=== PATIENT | female | born 1980 | race Caucasian/White ===

== ENCOUNTER 2016-04-10 10:27 | Emergency (ER) | payer OTHER ==
--- NOTE | 2016-04-10 11:20 | ERRECORD ---
[facility] EMERGENCY RECORD HPI VAGINAL DISCHARGE (10:57 ALIM) CHIEF COMPLAINT: Patient presents for evaluation of vaginal discharge. HISTORIAN: History provided by patient, 36 y/o female with reported history of endometriosis, presenting with one week of clear vaginal discharge. She went to her Cocoa Butter Filter Operator last week for pap smear. Spoke with Cocoa Butter Filter Operator while pt was in the ER, with diagnosis of bacterial vaginitis. Cocoa Butter Filter Operator called in a prescription. Pt does not want any further treatment or evaluation. No fever, headache, CP, n/v, constipation, diarrhea, or dysuria. Home and Cocoa Butter Filter Operator tests negative by report. DC with Cocoa Butter Filter Operator follow-up. LOCATION: Symptoms are generalized. QUALITY: Discharge described as, moderate amount, no pruritis, no foul odor, clear. SEVERITY: Maximum severity of symptoms mild, Currently symptoms are mild. TIME COURSE: Gradual onset of symptoms, 1, weeks ago. ASSOCIATED WITH: No associated symptoms, No associated chills, No associated constipation, No associated diarrhea, No associated fever, No associated flank pain, No associated hematuria, No associated loss of appetite, No associated nausea. EXACERBATED BY: Patient's condition exacerbated by nothing. RELIEVED BY: Patient's condition relieved by nothing. ROS CONSTITUTIONAL: Negative constitutional review of systems, Historian denies chills, denies fever. (10:59 ALIM) EYES: Negative eye review of systems, Historian denies eye pain, denies eye redness. (10:59 ALIM) ENT: Negative ears, nose, throat review of systems, Historian denies rhinorrhea, denies sore throat. (10:59 ALIM) CARDIOVASCULAR: Negative cardiovascular review of systems, Historian denies chest pain, no radiation, Historian denies syncope. (10:59 ALIM) RESPIRATORY: Negative respiratory review of systems, Historian denies cough, denies shortness of breath. (10:59 ALIM) GI: Historian denies abdominal pain, denies constipation, denies diarrhea, denies nausea, denies vomiting. Mild suprapubic cramping. (10:59 ALIM) GENITOURINARY FEMALE: Mild cramping. (11:01 ALIM) MUSCULOSKELETAL: Negative musculoskeletal review of systems, Historian denies back pain, denies injury, denies neck pain. (10:59 ALIM) SKIN: Negative skin review of systems, Historian denies rash, denies skin changes. (10:59 ALIM) NEUROLOGIC: Negative neurologic review of systems, Historian denies dizziness, denies focal weakness, denies headache. (10:59 ALIM) PSYCHIATRIC: Negative psychiatric review of systems, Historian denies alcohol abuse, denies anxiety, denies depression. (10:59 ALIM) NOTES: All systems reviewed, negative except as described above. &a-1R&a+25V*p+0X*m4910I*c202B*c15G*c2P*p-0X&a-25V&a+1R Name: Rajni Easley : 1980 F36 MedRec: [id number] AcctNum: [id number] Prepared: SunApr 10, 2016 11:21 by Interface Page 1 of 3 pMD [facility] EMERGENCY RECORD (10:59 ALIM) PAST MEDICAL HISTORY MEDICAL HISTORY: Notes: seizures, Flu vaccine not up to date, Tetanus not up to date, Past medical history includes gynecologic history, endometriosis. (11:18 ALIM) FEMALE SURGICAL HISTORY: endrometrosis laposcopic surgeries, Surgical history of appendectomy. (11:18 ALIM) PSYCHIATRIC HISTORY: Psychiatric history includes, Notes: stress induced psychosis. (11:18 ALIM) SOCIAL HISTORY: Patient drinks socially, Patient denies drug use, Patient currently uses tobacco, smokes cigarettes, Patient smokes 1 pack per day. (11:18 ALIM) NOTES: Nursing records reviewed, Agree with nursing records, Medication list reviewed, I have reviewed and agree with nursing PMH, PSH, social history, and FH. (10:59 ALIM) KNOWN ALLERGIES Cortisone (hydrocortisone): - "all topical cortisones make rash worse" Topical cortisone (Unconfirmed) CURRENT MEDICATIONS No recorded medications VITAL SIGNS (10:56 GHIA) VITAL SIGNS: BP: 125/92, Pulse: 98, Resp: 17, Temp: 98.2 (Oral), Pain: 6, O2 sat: 98 on Room Air, Time: 04/10/2016 10:56. PHYSICAL EXAM CONSTITUTIONAL: Vital Signs Reviewed, Patient afebrile, Pulse normal, Blood pressure normal, Respiratory rate normal, Patient appears non toxic, Patient appears pain free, Patient alert and oriented to person, place and time, Nursing notes reviewed. (10:59 ALIM) HEAD: Head exam normal, Head exam included findings of head atraumatic, normocephalic. (10:59 ALIM) EYES: Eye exam normal, Eye exam included findings of eyelids normal to inspection, Pupils equally round and reactive to light, Extraocular muscles intact. (10:59 ALIM) ENT: ENT exam normal, Ear exam normal, Nose exam normal, Pharynx exam normal. (10:59 ALIM) NECK: Neck exam normal, Neck exam included findings of normal range of motion, Trachea midline. (10:59 ALIM) RESPIRATORY CHEST: Respiratory and chest exam normal, Respiratory exam included findings of no respiratory distress, Breath sounds clear, No wheezing. (10:59 ALIM) CARDIOVASCULAR: Cardiovascular assessment normal, Cardiovascular exam included findings of heart rate regular rate and rhythm, Heart sounds normal. (10:59 ALIM) &a-1R&a+25V*p+0X*s3830T*c202B*c15G*c2P*p-0X&a-25V&a+1R Name: Rajni Easley : 1980 F36 MedRec: [id number] AcctNum: [id number] Prepared: SunApr 10, 2016 11:21 by Interface Page 2 of 3 pMD [facility] EMERGENCY RECORD ABDOMEN FEMALE: Abdominal exam normal, Bowel sounds normal. (11:00 ALIM) GENITOURINARY FEMALE: Deferred. Done by Cocoa Butter Filter Operator last week. (10:59 ALIM) BACK: Back exam normal, Back exam included findings of normal inspection, range of motion normal. (10:59 ALIM) UPPER EXTREMITY: Upper extremity exam normal, Upper extremity exam included findings of inspection normal, Range of motion normal. (10:59 ALIM) LOWER EXTREMITY: Lower extremity exam normal, Lower extremity exam included findings of inspection normal, Range of motion normal. (10:59 ALIM) NEURO: Neuro exam normal, [place] coma scale 15, Neuro exam findings include patient oriented to person, place and time, Speech normal, Gait normal. (10:59 ALIM) SKIN: Skin exam normal, Skin exam included findings of skin warm, dry, and normal in color. (10:59 ALIM) PSYCHIATRIC: Psychiatric exam normal, Psychiatric exam included findings of patient oriented to person place and time, Normal affect, Judgment normal. (10:59 EUGENE) DOCTOR NOTES (11:01 EUGENE) RE-EVALUATION: Discharge without lab work. All orders cancelled. Pt spoke with Cocoa Butter Filter Operator while pt was in the ER, received pap results from last week, dx bacterial vaginitis. Script called in by Cocoa Butter Filter Operator. No need for labs or pelvic exam here. DC with Cocoa Butter Filter Operator follow-up. PROBLEM LIST No recorded problems DIAGNOSIS (10:55 EUGENE) FINAL: PRIMARY: Bacterial vaginitis, ADDITIONAL: Vaginal discharge. PRESCRIPTION No recorded prescriptions DISPOSITION PATIENT: Disposition Type: Discharge, Disposition: *Discharge Home. (10:55 EUGENE) Patient left the department. (11:09 JOJO) Dugan: EUGENE=MD Bebo, Dagoberto URIBE=JOSEPH Moses, Coni &a-1R&a+25V*p+0X*m8186W*c202B*c15G*c2P*p-0X&a-25V&a+1R Name: Rajni Easley : 1980 F36 MedRec: [id number] AcctNum: [id number] Prepared: SunApr 10, 2016 11:21 by Interface Page 3 of 3 pMD MTDD
--- NOTE | 2016-04-10 11:24 | PICIS ---
[facility] EMERGENCY RECORD TRIAGE (SunApr 10, 2016 10:45 GHIA) PATIENT: NAME: Rajni Easley, AGE: 36, GENDER: female, : [facility] 1980, TIME OF GREET: SunApr 10, 2016 10:28, PREFERRED LANGUAGE: Greenlandic, RACE: WHITE, ETHNICITY: Not or , ECODE BILLING MAP: [facility] ER, SSN: [id number], Zip Code: [address], KG WEIGHT: 68.04, PHONE: , , , PERSON ID: [id number]. TRIAGE NOTES: Pt with clear watery vaginal discharge...pt on cell phone talking with LINDA Yeboah COMPLAINT: CLEAR WATERY VAGINAL DISCHARGE/ABD DISCOMFORT. ADMISSION: URGENCY: 3 Urgent, ADMISSION SOURCE: Home, TRANSPORT: CAR, BED: TRIAGE. PROVIDERS: TRIAGE NURSE: Coni Moses RN. PREVIOUS VISIT ALLERGIES: No Known Drug Allergies. KNOWN ALLERGIES Cortisone (hydrocortisone): - "all topical cortisones make rash worse" Topical cortisone (Unconfirmed) CURRENT MEDICATIONS No recorded medications VITAL SIGNS (10:56 GHIA) VITAL SIGNS: BP: 125/92, Pulse: 98, Resp: 17, Temp: 98.2 (Oral), Pain: 6, O2 sat: 98 on Room Air, Time: 04/10/2016 10:56. NURSING ASSESSMENT: HEAD-TO-TOE (10:50 GHIA) CONSTITUTIONAL: Patient arrives ambulatory, Gait steady, History obtained from patient, Patient appears comfortable, Patient cooperative, Patient alert, Oriented to person, place and time, Skin warm, Skin dry, Skin normal in color, Mucous membranes pink, Mucous membranes moist, Patient is well-groomed, Patient complains of VAginal discharge, Pt in room in bed . Assess. Plan of care of pt in ER discussed. PAIN: Patient rates pain as 0 out of 10, pt denies pain. SKIN: Skin assessment findings include skin warm, Skin dry, Skin normal in color, Notes: intact. RESPIRATORY/CHEST: Respiratory assessment findings include respiratory effort easy. CARDIOVASCULAR: Cardiovascular assessment findings include heart rate normal. ABDOMEN: Abdomen assessment findings include abdomen symmetrical, no associated nausea, no associated vomiting, no associated diarrhea, no associated constipation. GENITOURINARY FEMALE: no associated urinary complaints, Associated with vaginal discharge, small amount, of thin, clear discharge, "watery clear vag &a-1R&a+25V*p+0X*q5438D*c202B*c15G*c2P*p-0X&a-25V&a+1R Name: Rajni Easley : 1980 F36 MedRec: [id number] AcctNum: [id number] Prepared: SunApr 10, 2016 11:21 by Interface Page 1 of 6 pMD [facility] EMERGENCY RECORD discharge". NOTES: Emotional support needed and given. SAFETY: Side rails up, Cart/Stretcher in lowest position, Call light within reach, Hospital ID band on. NURSING PROCEDURE: DISCHARGE NOTE (11:01 IA) DISCHARGE: Patient discharged to home, ambulating without assistance, patient walking, unaccompanied, Summary of Care printed/ provided, Transition record given to patient, Discharge instructions given to patient, Simple or moderate discharge teaching performed, Above person(s) verbalized understanding of discharge instructions and follow-up care. BELONGINGS: Belongings remain with patient, Valuables remain with patient. SAFETY: Notes: pt instructed to go get RX called in to pt pharm of choice by pts OBGYN today and start med as instructed by pts OBGYN . NURSING PROCEDURE: NURSE NOTES (10:48 IA) NURSES NOTES: Notes: Pt states her OBGYN (per cell phone conversation going on at this time) said pts current condition (watery vaginal discharge) is from Vaginitis dx from PAP results obtained yesterday and OBGYN will call in antibx for pt. Er Dr at bedside and agrees with pt choice to leave Er and get antibx from pharm as prescribed. Pt states her preg test is negative. ORDER DETAILS Order Name: CATH STRAIGHT ED, Status: Active, Time: 10:48 04/10/2016, User: EUGENE, - Ordered for: MD Lagunas Arthur, - Entered by: MD Lagunas Arthur - SunApr 10, 2016 10:48, - Quantity: 1, Order Name: CBC with Differential, Status: Active, Time: 10:48 04/10/2016, User: EUGENE, - Ordered for: MD Lagunas Arthur, - Entered by: MD Lagunas Arthur - SunApr 10, 2016 10:48, - Quantity: 1, Order Name: Comprehensive Metabolic Panel, Status: Active, Time: 10:48 04/10/2016, User: EUGENE, - Ordered for: MD Lagunas Arthur, - Entered by: MD Lagunas Arthur - SunApr 10, 2016 10:48, - Quantity: 1, Order Name: Lipase, Status: Active, Time: 10:48 04/10/2016, User: EUGENE, - Ordered for: MD Lagunas Arthur, - Entered by: MD Lagunas Arthur - SunApr 10, 2016 10:48, - Quantity: 1, Order Name: Test, Urine (BHCG), Status: Active, Time: 10:48 04/10/2016, User: EUGENE, - Ordered for: MD Lagunas Arthur, &a-1R&a+25V*p+0X*j3272K*c202B*c15G*c2P*p-0X&a-25V&a+1R Name: Rajni Easley : 1980 F36 MedRec: [id number] AcctNum: [id number] Prepared: SunApr 10, 2016 11:21 by Interface Page 2 of 6 pMD [facility] EMERGENCY RECORD - Entered by: MD Lagunas Arthur - SunApr 10, 2016 10:48, - Quantity: 1, Order Name: SALINE LOCK, Status: Active, Time: 10:48 04/10/2016, User: EUGENE, - Ordered for: MD Lagunas Arthur, - Entered by: MD Lagunas Arthur - SunApr 10, 2016 10:48, - Quantity: 1, Order Name: Urinalysis with Microscopic, Status: Active, Time: 10:48 04/10/2016, User: EUGENE, - Ordered for: MD Lagunas Arthur, - Entered by: MD Lagunas Arthur - SunApr 10, 2016 10:48, - Quantity: 1. HPI VAGINAL DISCHARGE (10:57 ALIM) CHIEF COMPLAINT: Patient presents for evaluation of vaginal discharge. HISTORIAN: History provided by patient, 36 y/o female with reported history of endometriosis, presenting with one week of clear vaginal discharge. She went to her Boat Painter last week for pap smear. Spoke with Boat Painter while pt was in the ER, with diagnosis of bacterial vaginitis. Boat Painter called in a prescription. Pt does not want any further treatment or evaluation. No fever, headache, CP, n/v, constipation, diarrhea, or dysuria. Home and Boat Painter tests negative by report. DC with Boat Painter follow-up. LOCATION: Symptoms are generalized. QUALITY: Discharge described as, moderate amount, no pruritis, no foul odor, clear. SEVERITY: Maximum severity of symptoms mild, Currently symptoms are mild. TIME COURSE: Gradual onset of symptoms, 1, weeks ago. ASSOCIATED WITH: No associated symptoms, No associated chills, No associated constipation, No associated diarrhea, No associated fever, No associated flank pain, No associated hematuria, No associated loss of appetite, No associated nausea. EXACERBATED BY: Patient's condition exacerbated by nothing. RELIEVED BY: Patient's condition relieved by nothing. ROS CONSTITUTIONAL: Negative constitutional review of systems, Historian denies chills, denies fever. (10:59 ALIM) EYES: Negative eye review of systems, Historian denies eye pain, denies eye redness. (10:59 ALIM) ENT: Negative ears, nose, throat review of systems, Historian denies rhinorrhea, denies sore throat. (10:59 ALIM) CARDIOVASCULAR: Negative cardiovascular review of systems, Historian denies chest pain, no radiation, Historian denies syncope. (10:59 ALIM) RESPIRATORY: Negative respiratory review of systems, Historian denies cough, denies shortness of breath. (10:59 ALIM) GI: Historian denies abdominal pain, denies constipation, denies diarrhea, denies nausea, denies vomiting. Mild suprapubic &a-1R&a+25V*p+0X*y9286R*c202B*c15G*c2P*p-0X&a-25V&a+1R Name: Rajni Ealsey : 1980 F36 MedRec: [id number] AcctNum: [id number] Prepared: SunApr 10, 2016 11:21 by Interface Page 3 of 6 pMD [facility] EMERGENCY RECORD cramping. (10:59 ALIM) GENITOURINARY FEMALE: Mild cramping. (11:01 ALIM) MUSCULOSKELETAL: Negative musculoskeletal review of systems, Historian denies back pain, denies injury, denies neck pain. (10:59 ALIM) SKIN: Negative skin review of systems, Historian denies rash, denies skin changes. (10:59 ALIM) NEUROLOGIC: Negative neurologic review of systems, Historian denies dizziness, denies focal weakness, denies headache. (10:59 ALIM) PSYCHIATRIC: Negative psychiatric review of systems, Historian denies alcohol abuse, denies anxiety, denies depression. (10:59 ALIM) NOTES: All systems reviewed, negative except as described above. (10:59 ALIM) PAST MEDICAL HISTORY MEDICAL HISTORY: Notes: seizures, Flu vaccine not up to date, Tetanus not up to date, Past medical history includes gynecologic history, endometriosis. (11:18 ALIM) FEMALE SURGICAL HISTORY: endrometrosis laposcopic surgeries, Surgical history of appendectomy. (11:18 ALIM) PSYCHIATRIC HISTORY: Psychiatric history includes, Notes: stress induced psychosis. (11:18 ALIM) SOCIAL HISTORY: Patient drinks socially, Patient denies drug use, Patient currently uses tobacco, smokes cigarettes, Patient smokes 1 pack per day. (11:18 ALIM) NOTES: Nursing records reviewed, Agree with nursing records, Medication list reviewed, I have reviewed and agree with nursing PMH, PSH, social history, and . (10:59 ALIM) PHYSICAL EXAM CONSTITUTIONAL: Vital Signs Reviewed, Patient afebrile, Pulse normal, Blood pressure normal, Respiratory rate normal, Patient appears non toxic, Patient appears pain free, Patient alert and oriented to person, place and time, Nursing notes reviewed. (10:59 ALIM) HEAD: Head exam normal, Head exam included findings of head atraumatic, normocephalic. (10:59 ALIM) EYES: Eye exam normal, Eye exam included findings of eyelids normal to inspection, Pupils equally round and reactive to light, Extraocular muscles intact. (10:59 ALIM) ENT: ENT exam normal, Ear exam normal, Nose exam normal, Pharynx exam normal. (10:59 ALIM) NECK: Neck exam normal, Neck exam included findings of normal range of motion, Trachea midline. (10:59 ALIM) RESPIRATORY CHEST: Respiratory and chest exam normal, Respiratory exam included findings of no respiratory distress, Breath sounds clear, No wheezing. (10:59 ALIM) CARDIOVASCULAR: Cardiovascular assessment normal, Cardiovascular exam included findings of heart rate regular rate and rhythm, Heart &a-1R&a+25V*p+0X*u1286Y*c202B*c15G*c2P*p-0X&a-25V&a+1R Name: Rajni Easley : 1980 F36 MedRec: [id number] AcctNum: [id number] Prepared: SunApr 10, 2016 11:21 by Interface Page 4 of 6 pMD [facility] EMERGENCY RECORD sounds normal. (10:59 ALIM) ABDOMEN FEMALE: Abdominal exam normal, Bowel sounds normal. (11:00 ALIM) GENITOURINARY FEMALE: Deferred. Done by Boat Painter last week. (10:59 ALIM) BACK: Back exam normal, Back exam included findings of normal inspection, range of motion normal. (10:59 ALIM) UPPER EXTREMITY: Upper extremity exam normal, Upper extremity exam included findings of inspection normal, Range of motion normal. (10:59 ALIM) LOWER EXTREMITY: Lower extremity exam normal, Lower extremity exam included findings of inspection normal, Range of motion normal. (10:59 ALIM) NEURO: Neuro exam normal, [place] coma scale 15, Neuro exam findings include patient oriented to person, place and time, Speech normal, Gait normal. (10:59 ALIM) SKIN: Skin exam normal, Skin exam included findings of skin warm, dry, and normal in color. (10:59 ALIM) PSYCHIATRIC: Psychiatric exam normal, Psychiatric exam included findings of patient oriented to person place and time, Normal affect, Judgment normal. (10:59 ALIM) EVENTS TRANSFER: Triage to Emergency Triage. (SunApr 10, 2016 10:45 GHIA) Removed from Emergency Triage. (11:09 GHIA) DOCTOR NOTES (11:01 ALIM) RE-EVALUATION: Discharge without lab work. All orders cancelled. Pt spoke with Boat Painter while pt was in the ER, received pap results from last week, dx bacterial vaginitis. Script called in by Boat Painter. No need for labs or pelvic exam here. DC with Boat Painter follow-up. ATTENDING (10:59 ALIM) ATTENDING: The documented history was done by me personally, The documented physical exam was done by me personally, The documented procedures were done by me personally, I have personally seen and examined this patient. I have fully participated in the care of this patient. I have reviewed all pertinent clinical information, including history, physical exam and plan. PROBLEM LIST No recorded problems DIAGNOSIS (10:55 ALIM) FINAL: PRIMARY: Bacterial vaginitis, ADDITIONAL: Vaginal discharge. DISPOSITION &a-1R&a+25V*p+0X*u9554V*c202B*c15G*c2P*p-0X&a-25V&a+1R Name: Rajni Easley : 1980 6 MedRec: [id number] AcctNum: [id number] Prepared: SunApr 10, 2016 11:21 by Interface Page 5 of 6 pMD [facility] EMERGENCY RECORD PATIENT: Disposition Type: Discharge, Disposition: *Discharge Home. (10:55 ALIM) Patient left the department. (11:09 [facility]) INSTRUCTION (10:56 ALIM) DISCHARGE: VAGINITIS, BACTERIAL. FOLLOWUP: [facility], /[facility], [address] [place] [id number], . SPECIAL: Follow-up with your Financial Cost Analyst and primary care physician in 2-3 days for reevaluation. Please review the instructions and educational material provided for you. Return to the Emergency Center if you have worsening symptoms not controlled by medication, or if you have chest pain, shortness of breath, nausea and vomiting that cannot be controlled, or any other medical concerns. PRESCRIPTION No recorded prescriptions IMAGING *SUPPLY CHARGE SHEET: Image captured from scanner. (11:05 IA) *DISCHARGE INSTRUCTIONS RECEIPT: Image captured from scanner. (11:06 IA) ADMIN (11:18 ALI) DIGITAL SIGNATURE: MD Lagunas Arthur. Dugan: EUGENE=MD Lagunas Arthur GHIA=JOSEPH Moses, Coni &a-1R&a+25V*p+0X*z3321J*c202B*c15G*c2P*p-0X&a-25V&a+1R Name: Rajni Easley : 1980 F36 MedRec: [id number] AcctNum: [id number] Prepared: SunApr 10, 2016 11:21 by Interface Page 6 of 6 pMD MTDD
== END 2016-04-10 11:01 | disposition home or self-care (01) ==
LOC: NAV ERS 10:27
DX: N76.0 Acute vaginitis (principal); F17.210 Nicotine dependence, cigarettes, uncomplicated
CPT/HCPCS: 51701; 99283

== ENCOUNTER 2016-11-23 18:41 | Emergency (ER) | payer OTHER | END 2016-11-23 20:10 | disposition home or self-care (01) | LOC: NAV ERS 18:41 | DX: O99.322 Drug use complicating pregnancy, second trimester (principal); F43.0 Acute stress reaction; O99.332 Smoking (tobacco) complicating pregnancy, second trimester; F15.10 Other stimulant abuse, uncomplicated; Z79.899 Other long term (current) drug therapy; Z3A.14 14 weeks gestation of pregnancy ==

== ENCOUNTER 2016-11-24 01:48 | Emergency (ER) | payer OTHER | END 2016-11-24 02:27 | disposition left against medical advice (07) | LOC: NAV ERS 01:48 | DX: O99.89 Other specified diseases and conditions complicating pregnancy, childbirth and the puerperium (principal); R60.9 Edema, unspecified; O09.512 Supervision of elderly primigravida, second trimester; Z3A.14 14 weeks gestation of pregnancy | CPT/HCPCS: 99282 ==

== ENCOUNTER 2016-12-13 09:32 | Emergency (ER) | payer OTHER | END 2016-12-13 10:00 | disposition home or self-care (01) | LOC: NAV ERS 09:32 | DX: O99.89 Other specified diseases and conditions complicating pregnancy, childbirth and the puerperium (principal); R10.84 Generalized abdominal pain; O99.332 Smoking (tobacco) complicating pregnancy, second trimester; F17.210 Nicotine dependence, cigarettes, uncomplicated; Z3A.19 19 weeks gestation of pregnancy | CPT/HCPCS: 99283 ==

== ENCOUNTER 2017-03-13 01:26 | Emergency (ER) | payer OTHER | END 2017-03-13 01:43 | disposition home or self-care (01) | LOC: NAV ERS 01:26 | DX: J20.9 Acute bronchitis, unspecified (principal); F17.200 Nicotine dependence, unspecified, uncomplicated | CPT/HCPCS: 99283 ==

== ENCOUNTER 2017-04-13 10:03 | Emergency (ER) | payer OTHER ==
[2017-04-13 10:40] LABS: Bilirubin Small (Negative); Blood, Urine Large (Negative); Clarity Cloudy (Clear); Glucose, Urine (Dipstick) Negative (Negative); Leukocyte Small (Negative); Nitrite Negative (Negative); Protein, Urine (Dipstick) 100 mg/dL (Neg-Trace); Urobilinogen 0.2 mg/dL (0.2-1.0)
[2017-04-13 11:03] LABS: Bacteria/HPF Rare-Few HPF (None Seen); RBC/HPF GREATER THAN 50-TNTC HPF (0-3); Squamous Epithelial 0-3 HPF (0-3)
[2017-04-13] MEDS ORDERED: Metoclopramide HCl 10 MG TAB ONE (11:03)
== END 2017-04-13 12:00 | disposition home or self-care (01) ==
LOC: NAV ERS 10:03
DX: O86.20 Urinary tract infection following delivery, unspecified (principal); O99.335 Smoking (tobacco) complicating the puerperium; F17.290 Nicotine dependence, other tobacco product, uncomplicated; Z79.899 Other long term (current) drug therapy
CPT/HCPCS: 81003; 81015; 87086; 99283

== ENCOUNTER 2017-04-20 14:06 | Emergency (ER) | payer OTHER ==
[2017-04-20] MEDS ORDERED: Famotidine/PF 20 mg/2ml Vial ONE (14:22)
[2017-04-20] MEDS ORDERED: Sodium Chloride 0.9% 1,000 ML ONE (14:22)
[2017-04-20] MEDS ORDERED: diphenhydrAMINE 50 MG/ML VIAL ONE (14:23)
[2017-04-20] MEDS ORDERED: methylPREDNISolone Sod Succ/PF 125 MG/2 ML VIAL ONE (14:23)
[2017-04-20] MEDS ORDERED: Promethazine HCl 25 MG/ML VIAL ONE (14:52)
[2017-04-20] MEDS ORDERED: Sodium Chloride 0.9% 100 ML ONE (14:52)
== END 2017-04-20 15:47 | disposition home or self-care (01) ==
LOC: NAV ERS 14:06
DX: O99.73 Diseases of the skin and subcutaneous tissue complicating the puerperium (principal); L50.0 Allergic urticaria; O99.345 Other mental disorders complicating the puerperium; F41.9 Anxiety disorder, unspecified; O99.335 Smoking (tobacco) complicating the puerperium; F17.200 Nicotine dependence, unspecified, uncomplicated
CPT/HCPCS: 94760; 96361; 96365; 96375; 99406; J1200; J2550; J2930; J7050; S0028

== ENCOUNTER 2017-05-03 06:30 | Emergency (ER) | payer OTHER ==
[2017-05-03] MEDS ORDERED: Famotidine 20 MG TAB ONE (07:20)
[2017-05-03] MEDS ORDERED: methylPREDNISolone Acetate 40 mg/ml Vial ONE (07:21)
== END 2017-05-03 07:32 | disposition home or self-care (01) ==
LOC: NAV ERS 06:30
DX: L50.0 Allergic urticaria (principal); F43.10 Post-traumatic stress disorder, unspecified; F41.9 Anxiety disorder, unspecified; F17.210 Nicotine dependence, cigarettes, uncomplicated; G40.909 Epilepsy, unspecified, not intractable, without status epilepticus; Z79.899 Other long term (current) drug therapy
CPT/HCPCS: J1030

== ENCOUNTER 2017-05-03 10:58 | Emergency (ER) | payer OTHER ==
[2017-05-03] MEDS ORDERED: methylPREDNISolone Sod Succ/PF 125 MG/2 ML VIAL ONE (11:53)
== END 2017-05-03 12:29 | disposition home or self-care (01) ==
LOC: NAV ERS 10:58
DX: L50.0 Allergic urticaria (principal); F43.10 Post-traumatic stress disorder, unspecified; F41.9 Anxiety disorder, unspecified; F17.210 Nicotine dependence, cigarettes, uncomplicated; G40.909 Epilepsy, unspecified, not intractable, without status epilepticus; Z79.52 Long term (current) use of systemic steroids; Z79.899 Other long term (current) drug therapy
CPT/HCPCS: 96374; J1030; J2930

== ENCOUNTER 2017-05-18 13:32 | Emergency (ER) | payer OTHER ==
[2017-05-18] MEDS ORDERED: diphenhydrAMINE 50 MG/ML VIAL ONE (13:58)
[2017-05-18] MEDS ORDERED: Famotidine/PF 20 mg/2ml Vial ONE (13:59)
[2017-05-18] MEDS ORDERED: methylPREDNISolone Sod Succ/PF 125 MG/2 ML VIAL ONE (13:59)
== END 2017-05-18 14:38 | disposition home or self-care (01) ==
LOC: NAV ERS 13:32
DX: L50.0 Allergic urticaria (principal); F43.10 Post-traumatic stress disorder, unspecified; F41.9 Anxiety disorder, unspecified; F17.200 Nicotine dependence, unspecified, uncomplicated; Z79.899 Other long term (current) drug therapy
CPT/HCPCS: 96374; 96375; J1200; J2930; S0028

== ENCOUNTER 2017-06-28 19:07 | Emergency (ER) | payer OTHER | END 2017-06-28 19:47 | disposition home or self-care (01) | LOC: NAV ERS 19:07 | DX: L27.0 Generalized skin eruption due to drugs and medicaments taken internally (principal); T43.625A Adverse effect of amphetamines, initial encounter; L98.9 Disorder of the skin and subcutaneous tissue, unspecified; F15.10 Other stimulant abuse, uncomplicated; G40.909 Epilepsy, unspecified, not intractable, without status epilepticus; F43.10 Post-traumatic stress disorder, unspecified; F41.9 Anxiety disorder, unspecified; F17.200 Nicotine dependence, unspecified, uncomplicated; Z79.899 Other long term (current) drug therapy | CPT/HCPCS: 99282 ==

== ENCOUNTER 2017-09-12 17:11 | Emergency (ER) | payer OTHER ==
[2017-09-12] MEDS ORDERED: Ketorolac Tromethamine 60 MG/2 ML VIAL ONE (17:32)
== END 2017-09-12 17:44 | disposition home or self-care (01) ==
LOC: NAV ERS 17:11
DX: S30.0XXA Contusion of lower back and pelvis, initial encounter (principal); F43.10 Post-traumatic stress disorder, unspecified; F41.9 Anxiety disorder, unspecified; F17.200 Nicotine dependence, unspecified, uncomplicated; Z79.899 Other long term (current) drug therapy; W20.8XXA Other cause of strike by thrown, projected or falling object, initial encounter
CPT/HCPCS: 96372; J1885

== ENCOUNTER 2017-12-13 21:46 | Emergency (ER) | payer OTHER ==
[2017-12-13] MEDS ORDERED: Dexamethasone 20 MG/5 ML VIAL ONE (22:03)
== END 2017-12-13 22:25 | disposition home or self-care (01) ==
LOC: NAV ERS 21:46
DX: T78.40XA Allergy, unspecified, initial encounter (principal); F31.9 Bipolar disorder, unspecified; F43.10 Post-traumatic stress disorder, unspecified; F17.210 Nicotine dependence, cigarettes, uncomplicated; Z79.899 Other long term (current) drug therapy
CPT/HCPCS: 96372; J1100

== ENCOUNTER 2017-12-14 13:20 | Emergency (ER) | payer OTHER ==
[2017-12-14] MEDS ORDERED: predniSONE 20 MG TAB ONE (13:49)
== END 2017-12-14 14:02 | disposition home or self-care (01) ==
LOC: NAV ERS 13:20
DX: T78.40XA Allergy, unspecified, initial encounter (principal); F31.9 Bipolar disorder, unspecified; F43.10 Post-traumatic stress disorder, unspecified; F17.210 Nicotine dependence, cigarettes, uncomplicated
CPT/HCPCS: 99282; J7506

== ENCOUNTER 2018-01-15 19:26 | Emergency (ER) | payer OTHER ==
[2018-01-15] MEDS ORDERED: predniSONE 20 MG TAB ONE (19:43)
== END 2018-01-15 20:04 | disposition home or self-care (01) ==
LOC: NAV ERS 19:26
DX: T78.40XA Allergy, unspecified, initial encounter (principal); F17.210 Nicotine dependence, cigarettes, uncomplicated; Z79.899 Other long term (current) drug therapy
CPT/HCPCS: 99282; J7506

== ENCOUNTER 2018-01-16 02:03 | Emergency (ER) | payer OTHER | END 2018-01-16 02:35 | disposition home or self-care (01) | LOC: NAV ERS 02:03 | DX: T78.40XA Allergy, unspecified, initial encounter (principal); F41.9 Anxiety disorder, unspecified; F31.9 Bipolar disorder, unspecified; F43.10 Post-traumatic stress disorder, unspecified; F17.210 Nicotine dependence, cigarettes, uncomplicated; Z79.899 Other long term (current) drug therapy | CPT/HCPCS: 99283 ==

== ENCOUNTER 2018-01-16 03:47 | Emergency (ER) | payer OTHER ==
[2018-01-16] MEDS ORDERED: EPINEPHrine 1 MG/ML AMP ONE (04:09)
== END 2018-01-16 05:53 | disposition home or self-care (01) ==
LOC: NAV ERS 03:47
DX: T78.40XA Allergy, unspecified, initial encounter (principal); F31.9 Bipolar disorder, unspecified; F43.10 Post-traumatic stress disorder, unspecified; F17.210 Nicotine dependence, cigarettes, uncomplicated; Z79.899 Other long term (current) drug therapy
CPT/HCPCS: J0171

== ENCOUNTER 2018-01-16 06:42 | Emergency (ER) | payer OTHER ==
[2018-01-16] MEDS ORDERED: Sodium Chloride 0.9% 1,000 ML ONE (07:29)
[2018-01-16] MEDS ORDERED: diphenhydrAMINE 50 MG/ML VIAL ONE (07:29)
[2018-01-16 08:05] LABS: CKMB 0.7 ng/mL (0-6.6); Troponin I Less than 0.010 ng/mL (< 0.028)
[2018-01-16 08:06] LABS: ALT (SGPT) 20 U/L (8-55); AST (SGOT) 14 U/L (5-34); Alkaline Phosphatase 82 U/L (40-150); Anion Gap 14 mmol/L (10-20); BUN (Urea Nitrogen) 11 mg/dL (7.0-18.7); Bilirubin, Total 0.2 mg/dL (0.2-1.2); Calc. Creatinine Clearance 0 mL/min (70-130); Calcium 9.5 mg/dL (7.8-10.44); Carbon Dioxide 20 mmol/L (22-29); Chloride 105 mmol/L (98-107); Estimated GFR-MDRD 89; Globulin 3.3 g/dL (2.4-3.5); Glucose 161 mg/dL (70-105); Potassium 4.3 mmol/L (3.5-5.1); Protein, Total 7.3 g/dL (6.0-8.3); Sodium 135 mmol/L (136-145)
[2018-01-16] MEDS ORDERED: methylPREDNISolone Sod Succ/PF 125 MG/2 ML VIAL ONE (08:25)
[2018-01-16] MEDS ORDERED: Iopamidol 370 76% 100 ML VIAL ONE (09:00)
[2018-01-16 09:02] LABS: #Lymphocytes 0.9 thou/uL (1.20-3.40); #Monocytes 0.1 thou/uL (0.11-0.59); #Neutrophils 12.6 thou/uL (1.40-6.50); %Basophils 0.1 % (0.0-1.0); %Eosinophils 0.1 % (0.0-10.0); %Lymphocytes 6.8 % (21.0-51.0); %Monocytes 0.9 % (0.0-10.0); %Neutrophils 92.2 % (42.0-75.0); Hemoglobin 15.7 g/dL (12.0-16.0); Mean Corpuscular HGB CONC 32.9 g/dL (32.0-36.0); Mean Corpuscular Hemoglobin 29.2 pg (27.0-31.0); Mean Corpuscular Volume 88.8 fL (78.0-98.0); Mean Platelet Volume 8.9 fL (7.4-10.4); Platelet Count 323 thou/uL (130-400); RBC Distribution Width 11.7 % (11.5-14.5); Red Blood Cell (RBC) Count 5.39 mill/uL (4.20-5.40); White Blood Cell (WBC) Count 13.7 thou/uL (4.8-10.8)
--- NOTE | 2018-01-16 09:06 | CT ---
CT SOFT TISSUES OF NECK WITH IV CONTRAST: Date: 01/16/18 INDICATION: History of dyspnea, bipolar disorder, and seizure disorder. FINDINGS: There is prominent soft tissue thickening involving the hypopharynx, as well as the upper portion of the larynx at the level of the false vocal cords. There is edema within the prevertebral soft tissues . There are numerous enlarged lymph nodes within the upper neck. No drainable fluid collection is stacia dent. The visualized intracranial contents are unremarkable appearing. There is mild mucosal thickeni ng within the ethmoid air cells and maxillary sinuses. Parotid and submandibular glands are normal ap pearing. There is a 1.2 cm hypodensity within the right thyroid lobe. Lung apices are clear. No defin ite acute osseous abnormality demonstrated. IMPRESSION: 1. Findings of a hypopharyngitis and upper laryngitis with prevertebral soft tissue edema. No defini te drainable fluid collection is evident. 2. Likely reactive lymphadenopathy of the upper neck bilaterally. 3. Small hypodensity involving the right thyroid lobe. 4. Mild paranasal sinus disease. POS: [facility]
== END 2018-01-16 09:04 | disposition left against medical advice (07) ==
LOC: NAV ERS 06:42
DX: K12.2 Cellulitis and abscess of mouth (principal); J04.0 Acute laryngitis; J02.9 Acute pharyngitis, unspecified; F31.9 Bipolar disorder, unspecified; F43.10 Post-traumatic stress disorder, unspecified; F17.210 Nicotine dependence, cigarettes, uncomplicated; Z79.899 Other long term (current) drug therapy
CPT/HCPCS: 70492; 80053; 82553; 84484; 85025; 87081; 87430; 93005; 94640; 94760; 96361; 96372; 96374; 96375; J0171; J1200; J2930; J7050; J7620

== ENCOUNTER 2018-08-02 17:07 | Emergency (ER) | payer OTHER ==
[2018-08-02] MEDS ORDERED: predniSONE 20 MG TAB ONE (17:40)
== END 2018-08-02 17:43 | disposition home or self-care (01) ==
LOC: NAV ERS 17:07
DX: T78.40XA Allergy, unspecified, initial encounter (principal); F43.10 Post-traumatic stress disorder, unspecified; F31.9 Bipolar disorder, unspecified; F17.210 Nicotine dependence, cigarettes, uncomplicated; Z79.899 Other long term (current) drug therapy
CPT/HCPCS: 99283; J7512